=== PATIENT | female | born 1970 | race Caucasian/White ===

== ENCOUNTER → 2021-10-12 | Outpatient (CLI) | payer OTHER ==
[~2021-10-12] MED LIST: CETIRIZINE HCL10 MG PO; HYDROXYZINE HCL10 MG PO; LISINOPRIL20 MG PO; NORVASC5 MG PO; PEPCID40 MG PO; VITAMIN D325 MCG PO
[2021-10-12 10:26] LABS: HEMOGLOBIN 12.2 gm/dl (12.3-15.3); RED BLOOD COUNT 4.39 M/UL (4.00-5.10); WHITE BLOOD COUNT 4.9 K/UL (4.5-11.0)
[2021-10-12 11:09] LABS: BUN/CREATININE RATIO 24 (0-10)
== END ==
LOC: OPSV2 09:02
PROVIDERS: Anesthesiology; Obstetrics & Gynecology
DX: Z01.818 Encounter for other preprocedural examination (principal); N93.9 Abnormal uterine and vaginal bleeding, unspecified
CPT/HCPCS: 36415; 71046; 80053; 81001; 85025; 93005

== ENCOUNTER → 2021-10-18 | Day surgery (SDC) | payer OTHER ==
[~2021-10-18] VITALS: Ht 154.9 cm; Wt 56.2 kg
[~2021-10-18] MED LIST changes: +HYDROCODON-ACE1 EAC2 PO; +NAPROSYN500 MG PO; +ZOFRAN 4 MG TAB4 MG PO
== END | disposition home or self-care (01) ==
LOC: OR 09:09
DX: N84.0 Polyp of corpus uteri (principal); N93.9 Abnormal uterine and vaginal bleeding, unspecified; I10 Essential (primary) hypertension; Z88.0 Allergy status to penicillin; Z88.2 Allergy status to sulfonamides; Z88.8 Allergy status to other drugs, medicaments and biological substances; Z91.011 Allergy to milk products; Z91.012 Allergy to eggs; Z91.013 Allergy to seafood; Z91.018 Allergy to other foods; Z79.899 Other long term (current) drug therapy
CPT/HCPCS: C1769; J1100; J1885; J2001; J2250; J2370; J2405; J2704; J2795; J3010; J7030; J7120